=== PATIENT | male | born 1975 | race Two or more races ===

== ENCOUNTER 2024-12-15 10:48 | Emergency (ER) | payer OTHER ==
[~2024-12-15] VITALS: Ht 170.2 cm; Wt 100.0 kg
[2024-12-15 10:52] VITALS: TEMP 98.7
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
[2024-12-15 11:53] VITALS: BP 159/108; PULSE 90; RESP 17; O2SAT 95
[2024-12-15] MEDS: ACETAMINOPHEN 325 MG TAB PO ONE (11:53)
== END 2024-12-15 12:03 | disposition home or self-care (01) ==
LOC: ER 10:48
DX: I16.0 Hypertensive urgency (principal); F17.210 Nicotine dependence, cigarettes, uncomplicated; F10.90 Alcohol use, unspecified, uncomplicated; I10 Essential (primary) hypertension; Y90.9 Presence of alcohol in blood, level not specified